=== PATIENT | female | born 2000 | race Two or more races ===

== ENCOUNTER 2021-10-16 13:20 | Outpatient (CLI) | payer OTHER | END 2021-10-16 13:22 | disposition home or self-care (01) | LOC: LAB 13:20 | PROVIDERS: ATTEND Obstetrics & Gynecology Maternal & Fetal Medicine | DX: Z34.82 Encounter for supervision of other normal pregnancy, second trimester (principal) ==

== ENCOUNTER → 2021-12-10 09:12 | Outpatient (CLI) | payer OTHER | END | disposition home or self-care (01) | LOC: LAB 09:12 | PROVIDERS: ATTEND Obstetrics & Gynecology | DX: O09.72 Supervision of high risk pregnancy due to social problems, second trimester (principal) ==

== ENCOUNTER 2022-02-04 12:03 | Outpatient (CLI) | payer OTHER | END 2022-02-04 12:14 | disposition home or self-care (01) | LOC: LAB 12:03 | PROVIDERS: ATTEND Obstetrics & Gynecology | DX: Z34.83 Encounter for supervision of other normal pregnancy, third trimester (principal) ==

== ENCOUNTER → 2022-02-26 | Outpatient (CLI) | payer OTHER ==
[~2022-02-26] MED LIST: IRON PO; PRENATAL + DHA1 EAC1 PO
== END | disposition home or self-care (01) ==
LOC: NST 16:31
PROVIDERS: ATTEND Obstetrics & Gynecology
DX: Z34.83 Encounter for supervision of other normal pregnancy, third trimester (principal)

== ENCOUNTER 2022-02-27 13:28 | Inpatient (IN) | payer OTHER ==
[~2022-02-27] VITALS: Ht 162.6 cm; Wt 70.8 kg
[2022-03-03] MEDS ORDERED: PRENATAL + DHA1 EAC1 PO (19:46)
[2022-03-03] MEDS ORDERED: IRON PO (19:47)
== END 2022-03-06 10:22 | disposition home or self-care (01) | DRG 807 ==
LOC: LDR 03-03 19:40 → OB/GYN 03-04 07:20 → LDR 03-09 14:15
PROVIDERS: ADMIT Obstetrics & Gynecology; ATTEND Obstetrics & Gynecology
PROC: 4A1HXCZ Monitoring of Products of Conception, Cardiac Rate, External Approach (ICD-10-PCS; 2022-03-03)
PROC: 10E0XZZ Delivery of Products of Conception, External Approach (ICD-10-PCS; principal; 2022-03-04)
PROC: 0UQG7ZZ Repair Vagina, Via Natural or Artificial Opening (ICD-10-PCS; 2022-03-04)
DX: O71.4 Obstetric high vaginal laceration alone (principal); Z37.0 Single live birth; Z3A.39 39 weeks gestation of pregnancy; Z20.822 Contact with and (suspected) exposure to COVID-19